=== PATIENT | female | born 1940 | race Caucasian/White ===

== ENCOUNTER 2021-04-11 20:27 | Inpatient (IN) | payer MEDICARE ==
[~2021-04-11] VITALS: Ht 162.6 cm; Wt 108.5 kg
--- NOTE | ~2021-04-11 | CON ---
[address] [address] CONSULTATION Name: BRYAN COTTER Room: [address] IN .R.#: [id number] Admission: 04/12/21 Attend Phys: Bre East Discharge: Date of : 40 Report #: [id number] THIS REPORT FOR: cc: Kimani Wild MD,Kimani Ng,Leonidas Alvarado MD ~ DATE OF CONSULTATION: 04/12/2021 HISTORY OF PRESENT ILLNESS: This is an 80-year-old female patient who is not able to provide any history at all. In fact, she did not respond to me at all. History is entirely from the records as well as talking to the nurse looking after this patient. Nurse tells me that this patient is apparently aphasic in the halfway, but some of the records here indicate that she was responsive in the Emergency Room and basically came with a PICC line problem. Presently as mentioned above, she is not responsive. REVIEW OF SYSTEMS: Positive for CVA and she either has aphasia or dysarthria. She had what looks like pretty significant course in multiple hospitals. None of the record is available. She has a history of sepsis and shock. She is on chronic oxygen. She has hyperlipidemia, cellulitis, pneumonia, long QT interval, hypertension, anemia, breast cancer, pulmonary edema. Now, she is admitted with generalized edema and she is being managed for that. She apparently lives in a halfway. This is a relevant 14-point review of systems. PAST MEDICAL HISTORY: Positive for what looks like a stroke or a hematoma or a combination. I just need to find out when I get the records, which has been asked for, but they have not had those records yet. FAMILY HISTORY: Unavailable. SOCIAL HISTORY: There is nobody in the record. It does not look like she smokes or drinks because she is in a halfway, but no further history is available. PHYSICAL EXAMINATION: The patient did not wake up for me. She could not do anything for me. She will respond some to the painful stimuli, none to the verbal stimuli. She does not follow commands. I cannot tell about the cranial nerve or any focality in the neuromuscular examination. No change in cardiac status. No change in respiratory status, but looks like she is having some increase in respirations. She is reasonably well-developed individual. She has edema. Blood pressure is 121/60, respirations 16, pulse is 83. LABORATORY DATA: Indicate a white count of 6.9. She did not have any imaging study of the brain. She has no thyroid mass. [place] [address] CONSULTATION Name: BRYAN COTTER Room: [address] IN ..#: [id number] Admission: 04/12/21 Attend Phys: Bre East Discharge: Date of : 40 Report #: [id number] IMPRESSION: 1. This patient most likely had a prior stroke. We need those records. 2. Nurses said that she was more responsive earlier, but still was aphasic and presently to me she did not do anything, so I will get a CT of the head on her. 3. We might consider EEG in this patient. 4. Code status really needs to be addressed in this patient if she has a significant deficit and has something on the CT scan, which will cause her aphasia and maybe hemiplegia. We will look at it once this is done. Thank you very much for this referral. By: [id number] Ng MD /nt
--- NOTE | ~2021-04-11 | EEG ---
[address] [address] EEG STUDY REPORT Name: BRYAN COTTER Room: [address] IN M.R.#: [id number] Admission: 04/12/21 Attend Phys: Bre East Discharge: Date of : 40 Report #: [id number] THIS REPORT FOR: cc: Kimani Wild MD, Larry MD Khosla,Leonidas Alvarado MD ~ DATE OF SERVICE: 04/15/2021 This patient had an episode of altered mental status. EEG was done to evaluate that. EEG was done by placing the electrode by standard 10-20 system of electrode placement. Both referential and sequential montages were used for recording. Background activity in this patient's EEG goes to about 9 Hz and 30 microvolt. The patient went to sleep and that is associated with bilateral symmetrical sleep spindle and vertex sharp waves and slowing. Photic stimulation is unremarkable. IMPRESSION: Moderately abnormal EEG because it is intermixed with theta range slowing on both sides. That is a nonspecific finding, which can occur with dementia, encephalopathy, effect of psychotropic medication, etc. Clinical correlation is recommended. By: [id number] Ng MD /nt
[2021-04-11 20:29] VITALS: BP 112/60
[2021-04-12 01:55] LABS: ABSOLUTE BASOPHILS 0.1 thou/uL (0.0-0.2); ABSOLUTE EOSINOPHILS 0.1 thou/uL (0.0-0.7); ABSOLUTE LYMPHOCYTES 0.7 thou/uL (0.8-5.3); ABSOLUTE MONOCYTES 0.8 thou/uL (0.0-1.2); ABSOLUTE NEUTROPHILS 5.2 thou/uL (1.6-8.1); BASOPHILS 1.2 %; EOSINOPHILS 1.4 %; HEMATOCRIT 31.4 % (37.0-47.0); HEMOGLOBIN 9.3 gm/dL (12.0-15.0); LYMPHOCYTES 10.8 %; MCH 20.4 pg (26.0-34.0); MCHC 29.6 g/dL (28.0-37.0); MCV 68.8 fL (80.0-100.0); MONOCYTES 11.3 %; MPV 8.7 fl. (7.2-11.1); NUCLEATED RBCS 0 /100WBC; PLATELET COUNT* 382 thou/uL (150-400); POLYS 75.3 %; RBC 4.57 mil/uL (4.20-5.00); RDW-CV 29.2 % (10.5-14.5); WBC 6.9 thou/uL (4.0-11.0)
[2021-04-12 01:58] LABS: CALCIUM 8.6 mg/dL (8.5-10.1); CREATININE 0.7 mg/dL (0.6-1.3); POTASSIUM 4.7 mmol/L (3.5-5.1)
[2021-04-12 02:01] LABS: APTT 29.9 Seconds (25.0-31.3); INR 1.2; PROTIME 12.3 Seconds (9.20-11.50)
[2021-04-12 02:03] LABS: ALBUMIN 2.5 g/dL (3.4-5.0); TOTAL BILIRUBIN 1.6 mg/dL (<0.1-1.0); TOTAL PROTEIN 6.3 g/dL (6.4-8.2)
[2021-04-12] MEDS ORDERED: TESSALON PERLE100 MG PO (02:31)
[2021-04-12] MEDS ORDERED: LIPITOR10 MG PO (02:31)
[2021-04-12] MEDS ORDERED: ASA81BEC PO (02:31)
[2021-04-12] MEDS ORDERED: FUROSEMIDE 40 M40 MG PO (02:32)
[2021-04-12] MEDS ORDERED: LOVENOX40 MG/0.4 SUBQ (02:32)
[2021-04-12] MEDS ORDERED: MIRALAX119 GM PO (02:33)
[2021-04-12] MEDS ORDERED: MILK OF MA400 MG/5 M PO (02:33)
[2021-04-12] MEDS ORDERED: EFFER-K 20 MEQ20 ME1 PO (02:34)
[2021-04-12] MEDS ORDERED: SUPER THERAVIT1 EACH PO (02:34)
[2021-04-12] MEDS ORDERED: ZUPLENZ4 MG PO (02:34)
[2021-04-12 04:11] LABS: ANISOCYTOSIS 3+; HYPOCHROMASIA 3+; MICROCYTES 3+; PLATELET ESTIMATE ADEQUATE
[2021-04-12 04:12] LABS: TARGET CELLS 1+
[2021-04-12 10:00] VITALS: BP 115/57
--- NOTE | 2021-04-12 13:22 | 2DMMODE ---
[place] [address] 2 D/M-MODE ECHOCARDIOGRAM Name: BRYAN COTTER Katie Room: [facility]4 ADM IN [place].#: [id number] Admission: 04/12/21 Attend Phys: Jamie Freeman Discharge: Date of : 40 Date of Service: 04/12/21 1321 Report #: [id number] THIS REPORT FOR: cc: Kimani Wild MD, Larry MD Blick,Lex Ledezma MD [facility] ~ APPROVED REPORT Study performed: 04/12/2021 09:55:36 EXAM: Comprehensive 2D, Doppler, and color-flow Echocardiogram Patient Location: In-Patient Room #: er Status: routine BSA: 2.11 HR: 84 bpm BP: 110/56 mmHg Rhythm: NSR Other Information Study Quality: Good Indications Congestive Heart Failure 2D Dimensions IVSd: 16.10 (7-11mm) LVOT Diam: 19.51 (18-24mm) LVDd: 38.28 mm PWd: 15.51 (7-11mm) Ascending Ao: 28.09 (22-36mm) LVDs: 25.91 (25-40mm) Aortic Root: 31.01 mm Volumes Left Atrial Volume (Systole) LA ESV Index: 28.90 mL/m2 Aortic Valve AoV Peak Kvng.: 3.76 m/s AO Peak Gr.: 56.44 mmHg LVOT Max P.63 mmHg AO Mean Gr.: 32.52 mmHg LVOT Mean P.81 mmHg LVOT Max V: 0.64 m/s AO V2 VTI: 85.24 cm LVOT Mean V: 0.42 m/s CRISTINO (VTI): 0.53 cm2 LVOT V1 VTI: 15.00 [place] [address] 2 D/M-MODE ECHOCARDIOGRAM Name: BRYAN COTTER Room: [address] IN .R.#: [id number] Admission: 04/12/21 Attend Phys: Jamie Freeman Discharge: Date of : 40 Date of Service: 04/12/21 1321 Report #: [id number] Mitral Valve E/A Ratio: 2.64 MV Decel. Time: 149.18 ms MV E Max Kvng.: 1.11 m/s MV PHT: 43.26 ms MVA (PHT): 5.09 cm2 TDI E/Lateral E': 15.86 E/Medial E': 15.86 Medial E' Kvng.: 0.07 m/s Lateral E' Kvng.: 0.07 m/s Pulmonary Valve PV Peak Kvng.: 0.73 m/s PV Peak Gr.: 2.15 mmHg Tricuspid Valve RAP Estimate: 5.00 mmHg TR Peak Gr.: 34.61 mmHg RVSP: 39.00 mmHg PA Pressure: 39.00 mmHg Left Ventricle The left ventricle is normal size. There is normal LV segmental wall motion. Moderate concentric left ventricular hypertrophy. Left ventricular systolic function is normal. The left ventricular ejection fraction is within the normal range. LVEF is 55-60%. Grade IV - fixed restrictive diastolic dysfunction. Right Ventricle The right ventricle is normal size. The right ventricular systolic function is normal. Atria Left atrium is mildly dilated. The right atrium size is normal. Aortic Valve Aortic valve is calcified. Trace aortic regurgitation. Severe aortic stenosis. Mitral Valve There is mitral annular calcification. The mitral valve is normal in structure. Moderate mitral regurgitation. No evidence of mitral valve stenosis. Tricuspid Valve The tricuspid valve is normal in structure[place] [address] 2 D/M-MODE ECHOCARDIOGRAM Name: BRYAN COTTER Room: [address] IN [facility]#: [id number] Admission: 04/12/21 Attend Phys: Jamie Freeman Discharge: Date of : 40 Date of Service: 04/12/21 1321 Report #: [id number] regurgitation. estimated pa pressure 35 mm Hg Pulmonic Valve The pulmonary valve is normal in structure. There is trace pulmonic valvular regurgitation. Great Vessels The aortic root is normal in size. IVC is normal in size and collapses >50% with inspiration. Pericardium There is no pericardial effusion. Left pleural effusion. <Conclusion> Moderate concentric left ventricular hypertrophy. LVEF is 55-60%. Left atrium is mildly dilated. Severe aortic stenosis. Moderate mitral regurgitation. Mild tricuspid regurgitation. estimated pa pressure 35 mm Hg <ELECTRONICALLY SIGNED> By: Lex Noe MD, FACC 04/12/21 1321 1321 1321 Lex Noe MD, FACC /INF
[2021-04-12 14:00] VITALS: BP 121/60
[2021-04-12 15:25] VITALS: BP 121/60
[2021-04-12 20:30] VITALS: BP 144/66
[2021-04-12 23:18] LABS: URINE BLOOD TRACE (Negative); URINE CLARITY CLOUDY; URINE COLOR YELLOW; URINE GLUCOSE-RANDOM NEGATIVE (Negative); URINE KETONES NEGATIVE (Negative); URINE LEUKOCYTES-REFLEX NEGATIVE (Negative); URINE PROTEIN TRACE (Negative); URINE SPECIFIC GRAVITY >= 1.030 (1.005-1.030)
[2021-04-12 23:19] LABS: URINE BILIRUBIN 1+ (Negative); URINE NITRITE-REFLEX POSITIVE (Negative)
[2021-04-12 23:20] LABS: ICTOTEST (BILI CONFIRMATORY) Negative (Negative)
[2021-04-12 23:21] LABS: SQUAMOUS 0-3 Few /LPF (0-3); URINE RBC 0-2 Rare /HPF (0-2); URINE WBC-REFLEX 0-5 Rare /HPF (0-5)
[2021-04-12 23:22] LABS: AMORPHOUS URATES Many /LPF (None Seen); COARSE GRANULAR CASTS 0-3 Few /LPF (None Seen); FINE GRANULAR CASTS 0-3 Few /LPF (None Seen); MUCUS 4-6 Moderate strn/LPF (None Seen)
[2021-04-13] VITALS: BP 153/66
[2021-04-13 04:00] VITALS: BP 129/53
[2021-04-13 04:34] LABS: HEMATOCRIT 33.4 % (37.0-47.0); HEMOGLOBIN 9.9 gm/dL (12.0-15.0); MCH 20.6 pg (26.0-34.0); MCHC 29.6 g/dL (28.0-37.0); MCV 69.6 fL (80.0-100.0); MPV 8.4 fl. (7.2-11.1); NUCLEATED RBCS 0 /100WBC; PLATELET COUNT* 379 thou/uL (150-400); RDW-CV 29.6 % (10.5-14.5); WBC 6.3 thou/uL (4.0-11.0)
[2021-04-13 04:48] LABS: CALCIUM 8.9 mg/dL (8.5-10.1); CREATININE 0.7 mg/dL (0.6-1.3); POTASSIUM 4.6 mmol/L (3.5-5.1)
[2021-04-13 07:21] LABS: ABSOLUTE BASOPHILS 0.2 thou/uL (0.0-0.2); ABSOLUTE LYMPHOCYTES 0.7 thou/uL (0.8-5.3); ABSOLUTE MONOCYTES 0.6 thou/uL (0.0-1.2); ABSOLUTE NEUTROPHILS 4.9 thou/uL (1.6-8.1)
[2021-04-13 07:22] LABS: ANISOCYTOSIS 3+; HYPOCHROMASIA 3+; MICROCYTES 1+; PLATELET ESTIMATE ADEQUATE; TARGET CELLS 1+
[2021-04-13 08:37] VITALS: BP 118/66
[2021-04-13 14:18] VITALS: BP 117/61
[2021-04-13 15:47] LABS: ALBUMIN 2.9 g/dL (3.4-5.0); CALCIUM 8.9 mg/dL (8.5-10.1); CREATININE 0.7 mg/dL (0.6-1.3); POTASSIUM 4.6 mmol/L (3.5-5.1); TOTAL BILIRUBIN 1.8 mg/dL (<0.1-1.0)
[2021-04-13 17:17] VITALS: BP 114/54
[2021-04-13 20:00] VITALS: BP 165/48
[2021-04-14] VITALS: BP 126/48
[2021-04-14 04:00] VITALS: BP 122/51
[2021-04-14 09:04] LABS: CHOLESTEROL 88 mg/dL (<200); HDL CHOLESTEROL 35 mg/dL (>40); LDL CHOLESTEROL 41 mg/dL (<100); TC:HDL 2.5 Ratio (Not establshd); TRIGLYCERIDE 60 mg/dL (<150); VLDL 12 mg/dL (<40)
[2021-04-14 09:05] LABS: SERUM ASSESSMENT CLEAR
[2021-04-14 12:28] VITALS: BP 152/59
[2021-04-14 17:01] VITALS: BP 148/56
[2021-04-14 20:00] VITALS: BP 130/60
[2021-04-15] VITALS: BP 116/60
[2021-04-15 04:00] VITALS: BP 121/59
[2021-04-15 08:00] VITALS: BP 118/50
[2021-04-15 12:00] VITALS: BP 98/38
[2021-04-15 16:00] VITALS: BP 102/46
[2021-04-15 20:00] VITALS: BP 110/52
[2021-04-16] VITALS: BP 103/66
[2021-04-16 04:00] VITALS: BP 115/58
[2021-04-16 04:17] LABS: ABSOLUTE BASOPHILS 0.1 thou/uL (0.0-0.2); ABSOLUTE EOSINOPHILS 0.1 thou/uL (0.0-0.7); ABSOLUTE LYMPHOCYTES 0.6 thou/uL (0.8-5.3); ABSOLUTE NEUTROPHILS 5.7 thou/uL (1.6-8.1); BASOPHILS 0.8 %; EOSINOPHILS 1.2 %; HEMATOCRIT 32.3 % (37.0-47.0); HEMOGLOBIN 9.5 gm/dL (12.0-15.0); LYMPHOCYTES 7.7 %; MCH 20.5 pg (26.0-34.0); MCHC 29.3 g/dL (28.0-37.0); MONOCYTES 13.1 %; MPV 8.5 fl. (7.2-11.1); NUCLEATED RBCS 0 /100WBC; PLATELET COUNT* 315 thou/uL (150-400); POLYS 77.2 %; RBC 4.61 mil/uL (4.20-5.00); RDW-CV 28.4 % (10.5-14.5); WBC 7.4 thou/uL (4.0-11.0)
[2021-04-16 04:37] LABS: ALBUMIN 2.7 g/dL (3.4-5.0); CALCIUM 8.7 mg/dL (8.5-10.1); CREATININE 0.7 mg/dL (0.6-1.3); POTASSIUM 3.8 mmol/L (3.5-5.1); TOTAL BILIRUBIN 1.5 mg/dL (<0.1-1.0); TOTAL PROTEIN 6.6 g/dL (6.4-8.2)
[2021-04-16 08:01] VITALS: BP 116/60
[2021-04-16 12:00] VITALS: BP 96/43
[2021-04-16 16:00] VITALS: BP 106/56
[2021-04-17] VITALS: BP 95/44
[2021-04-17 04:00] VITALS: BP 109/48
[2021-04-17 09:23] VITALS: BP 98/43
[2021-04-17] MEDS ORDERED: DEPAKOTE 250MG250 M1 PO (09:54)
[2021-04-17] MEDS ORDERED: CEFDINIR300 MG PO (09:54)
[2021-04-17] MEDS ORDERED: PLAVIX 75 MG TA75 M1 PO (09:54)
[2021-04-17 12:32] VITALS: BP 102/55
[2021-04-17 17:03] VITALS: BP 108/54
[2021-04-17 21:04] VITALS: BP 116/53
[2021-04-18 00:10] VITALS: BP 100/55
[2021-04-18 08:21] VITALS: BP 103/45
== END 2021-04-18 18:31 | DRG 314 ==
LOC: M.ERS 20:27 → M.2W 04-12 01:30 → M.TBA-ER 04-12 01:30 → M.2W 04-12 15:42
PROVIDERS: Internal Medicine; Personal Emergency Response Attendant; ADMIT Internal Medicine; ATTEND Internal Medicine
PROC: 05HY33Z Insertion of Infusion Device into Upper Vein, Percutaneous Approach (ICD-10-PCS; principal; 2021-04-13)
DX: T82.524A Displacement of infusion catheter, initial encounter (principal); I63.89 Other cerebral infarction; E43 Unspecified severe protein-calorie malnutrition; J96.20 Acute and chronic respiratory failure, unspecified whether with hypoxia or hypercapnia; G93.41 Metabolic encephalopathy; I50.43 Acute on chronic combined systolic (congestive) and diastolic (congestive) heart failure; I38 Endocarditis, valve unspecified; N39.0 Urinary tract infection, site not specified; Z68.41 Body mass index [BMI] 40.0-44.9, adult; Z20.822 Contact with and (suspected) exposure to COVID-19; E78.5 Hyperlipidemia, unspecified; I27.20 Pulmonary hypertension, unspecified; N63.20 Unspecified lump in the left breast, unspecified quadrant; I11.0 Hypertensive heart disease with heart failure; E04.1 Nontoxic single thyroid nodule; I35.0 Nonrheumatic aortic (valve) stenosis; R53.81 Other malaise; Z85.3 Personal history of malignant neoplasm of breast; Z86.73 Personal history of transient ischemic attack (TIA), and cerebral infarction without residual deficits; Z88.0 Allergy status to penicillin; Y83.8 Other surgical procedures as the cause of abnormal reaction of the patient, or of later complication, without mention of misadventure at the time of the procedure; Y92.89 Other specified places as the place of occurrence of the external cause